=== PATIENT | female | born 1975 | race American Indian/Alaskan Native ===

== ENCOUNTER 2018-01-28 07:52 | Day surgery (SDC) | payer MEDICAID ==
[2018-01-28] MEDS ORDERED: NACL 0.9% 1000 ML 1,000 ML IV SCH (10:00)
--- NOTE | 2018-01-28 11:15 | Anesthesia Consultation ---
Anesthesia Consult and Med Hx Date of service: 01/28/18 - Airway Anesthetic Teeth Evaluation: Partials (upper) ROM Head & Neck: Adequate Mental/Hyoid Distance: Adequate Mallampati Class: Class II Intubation Access Assessment: Probably Good - Pulmonary Exam CTA: Yes - Cardiac Exam Cardiac Exam: RRR - Pre-Operative Health Status ASA Pre-Surgery Classification: ASA3 Proposed Anesthetic Plan: MAC - Pulmonary Hx Smoking: Yes Hx Asthma: Yes (last inhaler use 1m ago ) - Cardiovascular System Hx Hypertension: Yes - Central Nervous System Hx Psychiatric Problems: Yes (PTSD) - Hematic Hx Anemia: Yes
--- NOTE | 2018-01-28 11:15 | Anesthesia Day of Surgery ---
Anesthesia Day of Surgery - Day of Surgery Patient Examined: Yes Patient H&P Reviewed: Yes Patient is NPO: Yes
[2018-01-28] MEDS ORDERED: DIPRIVAN 10 MG/ML IV ONE ×2 (11:16)
--- NOTE | 2018-01-28 11:40 | Operative Report ---
Operative Report Operative Report: EGD Post bypass DATE: 01/28/18 OPERATIVE REPORT - EGD PREOP DIAGNOSIS: gastric dyspepsia POSTOP DIAGNOSIS: same SURGERY: Upper endoscopy. SURGEON: Dr. Jose Song RIB BENDER: Nura Jamison M.D. TYPE OF ANESTHESIA: MAC. ESTIMATED BLOOD LOSS: None. COMPLICATIONS: None. SPECIMENS REMOVED: GE junction biopsy FINDINGS: 1. normal esophagus 2. gastric pouch - 40ml 3. gastrojejunal anastomosis is 30mm 4. Marginal ulcer 5. Small hiatal hernia INDICATIONS:INDICATION FOR PROCEDURE: Patient is a 42-year-old F s/p gastric bypass in 2002. She has been having epigastric pain. The patient is here today for evaluation for her epigastric pain. . The patient is here for a planned EGD for gastric dyspepsia. PROCEDURE DETAILS: After consent was reviewed, patient was taken back to the operating room where patient was placed in the left lateral decubitus position and a bite block was placed in the mouth. After a time-out was called, MAC anesthesia was initiated. I then passed the endoscope into the patients oropharynx, into the esophagus, visualized the entire esophagus, which was all within normal limits. I then visualized the gastric pouch which was normal and about 40ml in size. The gastrojejunal anastomosis was at about 30mm. The proximal portion of the nahid limb showed a marginal ulcer, no bleeding noted. There was a visible suture distal to the ulcer. Mild inflam. seen at the GE junction. GE junction biopsy taken. Approx 2cm hiatal hernia noted. I then desufflated the gastric pouch and removed the endoscope. Patient tolerated procedure well and was transferred to recovery room in good and stable condition
--- NOTE | 2018-01-28 11:43 | Discharge Summary ---
Providers - Providers Attending physician: CHIN GUNN Primary care physician: MIGUEL A FERNÁNDEZ MD Hospitalization Procedures: egd Hospital course: 42 y.o. F presented to the hospital for EGD to evaluate her abdominal pain. She is sp gastric bypass in 2002. She tolerated the procedure well and was discharged home. Disposition: - TO HOME OR SELFCARE Core Measure Documentation - Palliative Care Palliative Care/ Comfort Measures: Not Applicable - Core Measures Any of the following diagnoses?: none Exam - Physical Exam Narrative exam: no change from prior - Constitutional Vitals: Temp Pulse Resp BP Pulse Ox 97.8 F 67 26 H 116/86 96 01/28/18 10:35 01/28/18 10:35 01/28/18 10:35 01/28/18 10:35 01/28/18 10:35 Plan Additional Instructions: Prescriptions will be called into your pharmacy. Follow up in Dr. Gunn's office. Follow up with: MIGUEL A FERNÁNDEZ MD [Primary Care Provider] - 7 Days
[2018-01-28 12:38] VITALS: BP 117/73
[2018-01-28] MEDS ORDERED: WATER FOR IRRIG STERILE IR ONE (13:09)
--- NOTE | 2018-01-28 14:15 | Post Anesthesia Evaluation ---
- Post Anesthesia Evaluation Patient Participated: Yes Airway Patent: Yes Stable Respiratory Function: Yes Nausea/Vomiting: No Temp > 96.8F: Yes Pain Manageable: Yes Adequeate Hydration: Yes Anesthesia Complications: No
[2018-01-28] MEDS ORDERED: HURRICAINE ONE 20% TOPICAL SPRAY MM (16:15)
== END 2018-01-28 07:53 | disposition home or self-care (01) ==
LOC: GIO 07:52
PROVIDERS: ATTEND Specialist
DX: K25.9 Gastric ulcer, unspecified as acute or chronic, without hemorrhage or perforation (principal); K29.60 Other gastritis without bleeding; K31.89 Other diseases of stomach and duodenum; K44.9 Diaphragmatic hernia without obstruction or gangrene; F41.9 Anxiety disorder, unspecified; F17.200 Nicotine dependence, unspecified, uncomplicated; J45.909 Unspecified asthma, uncomplicated; I10 Essential (primary) hypertension; Z79.899 Other long term (current) drug therapy; Z98.84 Bariatric surgery status
CPT/HCPCS: 43235; 81025; 88305; J2704; 88312

== ENCOUNTER 2019-03-10 09:47 | Day surgery (SDC) | payer MEDICARE ==
[2019-03-05 13:20] LABS: Basophils % (Auto) 0.7 % (0.0-1.8); Eosinophils # (Auto) 0.1 K/mm3 (0.0-0.4); Eosinophils % (Auto) 1.6 % (0.0-4.3); Hematocrit 38.5 % (30.3-42.9); Hemoglobin 13.1 gm/dl (10.1-14.3); Lymphocytes % (Auto) 51.2 % (13.4-35.0); Mean Corpuscular HGB Conc 34 % (30-34); Mean Corpuscular Volume 92 fl (79-97); Monocytes # (Auto) 0.3 K/mm3 (0.0-0.8); Monocytes % (Auto) 8.2 % (0.0-7.3); Platelet Count 251 K/mm3 (140-440); Red Blood Count 4.17 M/mm3 (3.65-5.03); Red Cell Distribution Width 15.6 % (13.2-15.2)
[2019-03-05 13:48] LABS: Alanine Aminotransferase 23 units/L (7-56); Albumin 3.6 g/dL (3.9-5); BUN/Creatinine Ratio 14; Blood Urea Nitrogen 7 mg/dL (7-17); Hemolysis Index 22
[~2019-03-10 09:47] MED LIST: ANCEF/STERILE WATER 2 GM/20 ML 2 GM/20 ML SYRINGE IV NR; FLAGYL 500 MG/100 ML 500 MG/100 ML BAG IV NR; LOVENOX SUB-Q NR; TRANSDERM-SCOP TD SCH
--- NOTE | 2019-03-10 10:21 | Anesthesia Day of Surgery ---
Anesthesia Day of Surgery - Day of Surgery Patient Examined: Yes Patient H&P Reviewed: Yes Patient is NPO: Yes Beta Blockers: No Cardiac Clearance: No Pulmonary Clearance: No Uziel's Test: N/A
[2019-03-10] MEDS ORDERED: PEPCID IV NR (10:27)
[2019-03-10] MEDS ORDERED: LACTATED RINGERS 1,000 ML ONE (10:31)
[2019-03-10] MEDS ORDERED: SUBLIMAZE IV PRN (10:32)
[2019-03-10] MEDS ORDERED: ZOFRAN IV PRN (10:32)
[2019-03-10] MEDS ORDERED: TORADOL IV PRN (10:32)
--- NOTE | 2019-03-10 10:32 | Anesthesia Consultation ---
Anesthesia Consult and Med Hx - Pulmonary Exam CTA: Yes - Cardiac Exam Cardiac Exam: RRR - Pre-Operative Health Status ASA Pre-Surgery Classification: ASA3 Proposed Anesthetic Plan: General - Pulmonary Hx Smoking: Yes (12PPD 2010; SINCE 37YO 3-4 CIGARS PDAY) Hx Asthma: Yes (RESCUE INHALER) - Cardiovascular System Hx Hypertension: Yes (1999) - Central Nervous System Hx Back Pain: Yes (chronic low back pain) Hx Psychiatric Problems: Yes - Gastrointestinal Hx Ulcer: Yes - Hematic Hx Anemia: Yes - Other Systems Hx Alcohol Use: No Hx Substance Use: No Hx Cancer: No
[2019-03-10] MEDS ORDERED: NEURONTIN PO NR (11:00)
[2019-03-10] MEDS ORDERED: XYLOCAINE 1% 20 mL ONE (11:02)
[2019-03-10] MEDS ORDERED: MARCAINE-EPI 0.5%-1:200,000 INFILTRATI ONE ×2 (11:02→12:11)
[2019-03-10] MEDS ORDERED: ZEMURON IV ONE (11:30)
[2019-03-10] MEDS ORDERED: XYLOCAINE MPF 2% ONE (11:30)
[2019-03-10] MEDS ORDERED: DIPRIVAN 10 MG/ML IV ONE (11:31)
[2019-03-10] MEDS ORDERED: VERSED ONE (11:31)
[2019-03-10] MEDS ORDERED: SUBLIMAZE ONE ×2 (11:31→12:24)
[2019-03-10] MEDS ORDERED: ZOFRAN ONE (11:46)
[2019-03-10] MEDS ORDERED: BLOXIVERZ ONE (11:47)
[2019-03-10] MEDS ORDERED: ROBINUL ONE (11:47)
[2019-03-10] MEDS ORDERED: XYLOCAINE 1% 20 mL INFILTRATI ONE (12:11)
[2019-03-10] MEDS ORDERED: NACL 0.9% IR ONE (12:12)
[2019-03-10] MEDS: DILAUDID IV PRN ×3 (12:50→13:10)
--- NOTE | 2019-03-10 13:12 | Operative Report ---
PREOPERATIVE DIAGNOSES: 1. Left upper quadrant pain. 2. Status post Lilibeth-en-Y gastric bypass. 3. Status post laparoscopic GJ revision with BP limb lengthening. POSTOPERATIVE DIAGNOSES: 1. Left upper quadrant pain. 2. Status post Lilibeth-en-Y gastric bypass. 3. Status post laparoscopic GJ revision with BP limb lengthening. OPERATION: 1. Diagnostic laparoscopy. 2. Lysis of adhesions. 3. Upper endoscopy. ANESTHESIA: General endotracheal anesthesia. COMPLICATIONS: None. BLEEDING: None. SPECIMENS: None. INDICATIONS: The patient is a 43-year-old female with a history of a Lilibeth-en-Y gastric bypass in 2003 and subsequent revision in 2018. She has been having intermittent left upper quadrant pain and was seen in clinic. She was recommended a diagnostic laparoscopy. Of note, the patient does smoke a half pack per day and takes ibuprofen for the chronic pain. The risks, complications, alternatives were explained to the patient. Informed consent was obtained. DESCRIPTION OF PROCEDURE: The patient was brought to the operating room where she was placed in the supine position and underwent general endotracheal intubation. Preoperative antibiotics and DVT prophylaxis were given and then a timeout was called to ensure proper patient, indication, and operation. Local analgesia was injected into the left upper quadrant and a small stab incision was made with insertion of a Veress needle. Insufflation pressures were achieved to 15 mmHg. Intra-abdominal access was gained via the right lateral space via a 5 mm Optiview trocar. There was no intra-abdominal injury from the Veress needle. Additional 5 mm trocars were placed under direct visualization in the midline, right lateral and left lateral quadrants. I ran the bowel from the Lilibeth limb to the jejunojejunostomy and identified the BP limb and common channel. Potential spots for internal hernias were identified and there were no internal hernias seen. Sellers's space as well as the mesentery of the JJ were examined and were found to be intact. The bowel appeared normal. An adhesion from going up to the right lateral sidewall was taken down with electrocautery. After fully inspecting the abdominal cavity and finding no other etiology, I went above and did an upper endoscopy. The gastric pouch did not have any ulcers; however, there was evidence of mild gastritis. There was no abnormality in the Lilibeth limb. With this, the air was suctioned out of the Lilibeth limb. The gastroscope was removed. The air was allowed to desufflate from the abdominal cavity and the ports were removed. Additional local was injected into all the port sites and wounds were closed with 4-0 Monocryl. Sterile bandages were placed over top. The patient was then extubated and left the operating room in stable condition. Counts were correct. FINDINGS: 1. Adhesion to the right lateral sidewall. 2. Normal Lilibeth-en-Y anatomy with no identifiable internal hernias. 3. Evidence of gastritis in the gastric pouch; however, no overt ulcers. JOB# [id number] DAI/CLEMENT
[2019-03-10 13:43] VITALS: BP 114/72
== END 2019-03-10 14:10 | disposition home or self-care (01) ==
LOC: OR 09:47
PROVIDERS: ATTEND Specialist
DX: K66.0 Peritoneal adhesions (postprocedural) (postinfection) (principal); F17.210 Nicotine dependence, cigarettes, uncomplicated; K29.70 Gastritis, unspecified, without bleeding; I10 Essential (primary) hypertension; J45.909 Unspecified asthma, uncomplicated; K21.9 Gastro-esophageal reflux disease without esophagitis; F32.9 Major depressive disorder, single episode, unspecified; F41.9 Anxiety disorder, unspecified; Z79.899 Other long term (current) drug therapy; Z98.890 Other specified postprocedural states; Z90.49 Acquired absence of other specified parts of digestive tract; Z98.51 Tubal ligation status; Z87.442 Personal history of urinary calculi; Z86.2 Personal history of diseases of the blood and blood-forming organs and certain disorders involving the immune mechanism
CPT/HCPCS: 36415; 43235; 49329; 80053; 81025; 84132; 84703; 85025; 93005; 93010; J0690; J1170; J1650; J2250; J2405; J2704; J2710; J3010; J7120